=== PATIENT | male | born 1995 | race Two or more races ===

== ENCOUNTER 2019-02-01 17:53 | Emergency (ER) | payer OTHER ==
--- NOTE | 2019-02-01 18:11 | EDPHY ---
H & P Time Seen by Provider: 02/01/19 18:06 HPI/ROS: CHIEF COMPLAINT: Left middle finger injury HISTORY OF PRESENT ILLNESS: 530 p.m. today slicing ham at work cut tip of his left middle finger. REVIEW OF SYSTEMS: No other injuries PAST MEDICAL HISTORY: Negative, tetanus up-to-date Social history: The work injury General Appearance: Alert and conversant, cooperative. Normal motor and vascular. Normal sensory. 5 x 10 mm distal left middle finger volar pad skin avulsion at the distal pad. Nonsuturable. Normal flexor and extensor tendon function. Emergency Department course/MDM: Wound care, secondary intention, stable for discharge. Work comp follow-up. Smoking Status: Current every day smoker Constitutional: Initial Vital Signs Temperature (C) 37.4 C 02/01/19 17:55 Heart Rate 74 02/01/19 17:55 Respiratory Rate 16 02/01/19 17:55 Blood Pressure 142/85 H 02/01/19 17:55 O2 Sat (%) 93 02/01/19 17:55 O2 Delivery Mode Room Air Allergies/Adverse Reactions: No Known Allergies Allergy (Unverified 02/01/19 17:59) Home Medications: Medication Instructions Recorded NK [No Known Home Meds] 02/01/19 MDM/Departure - Depart Disposition: Home, Routine, Self-Care Clinical Impression: skin avulsion finger tip Condition: Good Instructions: Acute Wounds (ED) Referrals: Work Comp Ref/Restrictions [Outside] - As per Instructions (Okay to work as long as the wound and the finger is covered with waterproof glove until fully healed. Follow-up at worker's comp clinic in 24-48 hours for wound check.)
[2019-02-01 18:25] VITALS: BP 125/78
== END 2019-02-01 18:37 | disposition home or self-care (01) ==
DX: S61.203A Unspecified open wound of left middle finger without damage to nail, initial encounter (principal); W26.8XXA Contact with other sharp object(s), not elsewhere classified, initial encounter; Y99.0 Civilian activity done for income or pay